=== PATIENT | female | born 1965 | race Two or more races ===

== ENCOUNTER 2019-10-24 05:25 | Day surgery (SDC) | payer OTHER ==
[~2019-10-24 05:25] MED LIST: CYMBALTA60 MG PO; GABAPENTIN600 MG PO; LORAZEPAM1 MG PO; NABUMETONE500 MG PO; NOXIFOL-D32500 UNIT PO; PERCOCET 5/3251 TAB PO; SYNTHROID100 MCG PO; TRINTELLIX5 MG PO
== END 2019-10-24 11:15 | disposition home or self-care (01) ==
LOC: CIR.AMB 05:25
PROVIDERS: ATTEND Orthopaedic Surgery Hand Surgery
DX: G56.02 Carpal tunnel syndrome, left upper limb (principal); Z20.828 Contact with and (suspected) exposure to other viral communicable diseases

== ENCOUNTER 2020-01-23 10:41 | Outpatient (CLI) | payer OTHER ==
[~2020-01-23 10:41] MED LIST changes: +HORIZANT600 MG PO
== END 2020-01-23 10:42 | disposition home or self-care (01) ==
LOC: LAB 10:41
PROVIDERS: ATTEND Orthopaedic Surgery Hand Surgery
DX: R05 Cough (principal); Z20.828 Contact with and (suspected) exposure to other viral communicable diseases

== ENCOUNTER 2020-01-30 05:45 | Day surgery (SDC) | payer OTHER | END 2020-01-30 11:35 | disposition home or self-care (01) | LOC: CIR.AMB 05:45 | PROVIDERS: ATTEND Orthopaedic Surgery Hand Surgery | DX: G56.01 Carpal tunnel syndrome, right upper limb (principal); Z20.828 Contact with and (suspected) exposure to other viral communicable diseases ==